=== PATIENT | female | born 1990 | race Caucasian/White ===

== ENCOUNTER → 2023-10-02 08:57 | Outpatient (REF) | payer BC, SELFPAY | LOC: PNTC 08:57 | PROVIDERS: ATTENDING PHYSICIAN Obstetrics & Gynecology | DX: Z34.82 Encounter for supervision of other normal pregnancy, second trimester (principal) | CPT/HCPCS: 76805 ==

== ENCOUNTER → 2023-11-13 09:47 | Outpatient (REF) | payer BC, SELFPAY | LOC: PNTC 09:47 | PROVIDERS: ATTENDING PHYSICIAN Obstetrics & Gynecology | DX: O98.519 Other viral diseases complicating pregnancy, unspecified trimester (principal); U07.1 COVID-19 | CPT/HCPCS: 76816 ==

== ENCOUNTER → 2023-12-25 09:52 | Outpatient (REF) | payer BC, SELFPAY | LOC: PNTC 09:52 | PROVIDERS: ATTENDING PHYSICIAN Obstetrics & Gynecology | DX: O98.519 Other viral diseases complicating pregnancy, unspecified trimester (principal); U07.1 COVID-19 | CPT/HCPCS: 76816 ==

== ENCOUNTER 2024-02-20 19:30 | Inpatient (IN) | payer BC, SELFPAY ==
[2024-02-20 19:34] VITALS: BP 126/74; BMI 31.2
[2024-02-20] MEDS: LR 1000 IV (20:05)
[2024-02-20 20:36] LABS: % Basophils 0.3 % (0-2); % Eosinophils 0.3 % (0-6); % Immature Granulocytes 0.9 % (0-0.5); % Lymphocytes 17.1 % (20.5-51.1); % Monocytes 10.5 % (1.7-9.3); % Neutrophils 70.9 % (42.2-75.2); Absolute Immature Granulocytes 0.1 10^3/uL (0-0.05); Absolute Monocytes 1.2 10^3/uL (0.1-0.6); Absolute Neutrophils 8.3 10^3/uL (1.4-6.5); Hematocrit 29.2 % (37.0-47.0); Hemoglobin 9.9 g/dL (12.0-16.0); Mean Corp Hgb Conc. 33.9 g/dL (33.0-37.0); Mean Corpuscular Volume 82.7 fL (81.0-99.0); Mean Platelet Volume 9.7 fL (7.4-10.4); Nucleated Red Blood Cells % 0 %; Platelet Count 208 10^3/uL (130-400); Red Blood Cell Count 3.53 10^6/uL (4.20-5.40); Red Cell Dist. Width 14.2 % (11.5-14.5); White Blood Cell Count 11.7 10^3/uL (4.8-10.8)
[2024-02-20] MEDS: CYTOTEC 50 MICROGRAM VAG (21:31)
[2024-02-21] MEDS: PITOCIN 30 UNITS/NSS 500 ML IV (02:51)
[2024-02-21] MEDS: MOTRIN 600 MG PO ×3 (04:11→21:37)
[2024-02-21] MEDS: TYLENOL 650 MG PO ×2 (04:11→21:37)
[2024-02-21] MEDS: PRENATAL PLUS 1 TABLET PO (08:51)
[2024-02-21] MEDS: SENOKOT-S 1 TABLET PO (08:51)
[2024-02-22 03:49] LABS: Hematocrit 28.5 % (37.0-47.0); Hemoglobin 9.8 g/dL (12.0-16.0)
[2024-02-22] MEDS: SENOKOT-S 1 TABLET PO (09:16)
[2024-02-22] MEDS: PRENATAL PLUS 1 TABLET PO (09:16)
[2024-02-22] MEDS: FEOSOL 325 MG PO (09:16)
[2024-02-25 16:07] LABS: Syphilis/T. pallidum Ab Reflex Negative (Negative)
== END 2024-02-22 11:22 | disposition home or self-care (01) | DRG 807 ==
LOC: LDRP 19:30
PROVIDERS: Obstetrics & Gynecology; ADMITTING PHYSICIAN Obstetrics & Gynecology
PROC: 3E0P7VZ Introduction of Hormone into Female Reproductive, Via Natural or Artificial Opening (ICD-10-PCS; 2024-02-20)
PROC: 10E0XZZ Delivery of Products of Conception, External Approach (ICD-10-PCS; 2024-02-21)
DX: O48.0 Post-term pregnancy (principal); Z37.0 Single live birth; Z3A.40 40 weeks gestation of pregnancy; O69.81X0 Labor and delivery complicated by cord around neck, without compression, not applicable or unspecified; O99.344 Other mental disorders complicating childbirth; F32.A Depression, unspecified; Z86.16 Personal history of COVID-19; Z83.3 Family history of diabetes mellitus; Z82.49 Family history of ischemic heart disease and other diseases of the circulatory system; Z80.3 Family history of malignant neoplasm of breast; Z87.442 Personal history of urinary calculi
CPT/HCPCS: 36415; 85014; 85018; 85025; 86780; 86850; 86900; 86901